=== PATIENT | female | born 1935 | race Caucasian/White ===

== ENCOUNTER 2021-08-27 15:46 | Inpatient (IN) | payer MEDICARE, BC ==
[~2021-08-27] VITALS: Ht 172.7 cm; Wt 59.9 kg
[~2021-08-27 15:46] MED LIST: ANTIDEPRESSANT; ASPI81CH PO; Atrovent Inha12.9 GM; CIPR500 PO; ESTR.05TPB TOP; GABA100 PO; MEDR2.5 PO; METO25 PO; Robaxin500 MG PO
[2021-08-27 16:34] LABS: BASOPHILS ABSOLUTE AUTO 0.04 K/mm3 (0.00-0.23); BASOPHILS PERCENT AUTO 0 % (0-2); EOSINOPHILS PERCENT AUTO 0 % (0-6); Hematocrit 43.6 % (33.0-51.0); Hemoglobin 14.2 g/dL (11.5-16.0); IMMATURE GRAN ABSOLUTE AUTO 0.09 K/mm3 (0.00-0.10); IMMATURE GRAN PERCENT AUTO 1 % (0-1); LYMPHOCYTES ABSOLUTE AUTO 0.63 K/mm3 (0.84-5.20); LYMPHOCYTES PERCENT AUTO 4 % (21-46); MONOCYTES ABSOLUTE AUTO 0.48 K/mm3 (0.16-1.47); MONOCYTES PERCENT AUTO 3 % (4-13); Mean Corpuscular HGB 32.1 pg (26.0-34.0); Mean Corpuscular HGB Conc 32.6 g/dL (31.5-36.5); Mean Corpuscular Volume 99 fL (80-100); Mean Platelet Volume 10.5 fL (9.1-12.4); NEUTROPHILS ABSOLUTE AUTO 16.96 K/mm3 (1.96-9.15); NEUTROPHILS PERCENT AUTO 93 % (41-73); Platelet Count 247 K/mm3 (150-400); RDW Coefficient Variation 12.5 % (11.7-14.2); RDW Standard Deviation 45.4 fL (35.1-46.3); Red Blood Cell Count 4.42 M/mm3 (3.80-5.20)
[2021-08-27] MEDS ORDERED: PROP10 PO (16:58)
[2021-08-27 17:01] LABS: Alanine Aminotransfer (ALT/SGP 48 U/L (12-78); Albumin, Blood 3.7 g/dL (3.4-5.0); Albumin/Globulin Ratio 1.1 (0.8-1.8); Alk Phos 82 U/L (50-136); Anion Gap 4 mmol/L (6-16); Aspartate Aminotrans (AST/SGOT 40 U/L (12-37); Bilirubin, Total 1.4 mg/dL (0.1-1.0); Blood Urea Nitrogen 26 mg/dL (8-24); Bun/Creatinine Ratio 37.8 (12.0-20.0); CO2, Blood 27 mmol/L (21-32); Calcium, Blood 9.1 mg/dL (8.5-10.1); Chloride, Blood 111 mmol/L (98-108); Creatinine, Blood 0.69 mg/dL (0.40-1.00); Globulin, Blood 3.5 g/dL (2.2-4.0); Glomerular Filtration Rate >60 (60-); Glucose, Blood 154 mg/dL (70-99); Sodium, Blood 142 mmol/L (136-145); Total Protein, Blood 7.2 g/dL (6.4-8.2)
[2021-08-27 17:40] LABS: Free Thyroxine 1.37 ng/dL (0.70-1.60); Magnesium, Blood 2.2 mg/dL (1.6-2.4)
[2021-08-27 17:42] LABS: Thyroid Stimulating Hormone 0.603 uIU/mL (0.360-4.800)
[2021-08-27 17:54] LABS: Source, Urine Clean Catch
[2021-08-27 18:07] LABS: Appearance, Urine Clear (Clear); Bilirubin, Urine Neg (Neg); Blood, Urine 3+ (Neg); Color, Urine Yellow (P-Yellow); Glucose Qualitative, Urine 2+ (Neg); Ketones, Urine 2+ (Neg); Leukocyte Esterase, Urine 3+ (Neg); Nitrite, Urine Neg (Neg); Protein, Urine 3+ (Neg); Urobilinogen, Urine NORM (Normal)
[2021-08-27 18:12] LABS: White Blood Cells, Urine 25-50 /hpf (0-5)
[2021-08-27 18:13] LABS: Bacteria Many /hpf; Squamous Epithelial Cells Few /hpf (Few); Transitional Epithelial Cells Few /hpf (0-Rare)
[2021-08-27] MEDS ORDERED: IPRATROPIUM BRO15 ML (20:00)
[2021-08-27] MEDS ORDERED: Methocarbamol500 MG PO (21:42)
[2021-08-27 22:02] LABS: SARS-Cov-2 (COVID-19) PCR, MMC NEGATIVE (NEGATIVE)
--- NOTE | 2021-08-28 00:41 | NUR ---
08/27/21 2253 PT ARRIVED TO ROOM FROM ER IN STABLE CONDITION. PT REPORTS A LITTLE NAUSEA. REPORTS N/T AND LEG CRAMPS THAT IS NOT NEW. PT'S HR IS BOUCING BACK AND FORTH BETWEEN THE 130'S AND THE 60'S TO 70'S. WILL LET THE DR KNOW. NO MEDS ARE ORDERED FOR THIS AT THIS TIME. NO OTHER APPARENT SIGNS OF DISTRESS. CALL LIGHT IS IN REACH.
--- NOTE | 2021-08-28 00:43 | NUR ---
CALLED DR CLEMENT PT'S HR, GOT ORDERS FOR PRN LOPRESSOR, WILL ADMINISTER ORDERED SOON IT IS AVAILABLE. PT IS CURRENTLY LYING IN BED, EYES CLOSED, APPEARS TO BE RESTING. BREATHING IS EVEN, AND UNLABORED. NO APPARENT SIGNS OF DISTRESS. CALL LIGHT IS IN REACH.
--- NOTE | 2021-08-28 01:33 | NUR ---
ADMINISTERED LOPRESSOR, PT'S HR IS NOW IN THE 120'S. PT LYING IN BED, HAD ALSO REPORTED NAUSEA, GAVE ZOFRAN, WILL EVAL FOR EFFECT. EYES CLOSED, APPEARS TO BE RESTING. BREATHING IS EVEN, UNLABORED. NO OTHER APPARENT SIGNS OF DISTRESS. CALL LIGHT IS IN REACH.
--- NOTE | 2021-08-28 04:04 | NUR ---
PT LYING IN BED, EYES CLOSED, APPEARS TO BE RESTING. WAKES EASILY TO VERBAL STIMULI. NO APPARENT SIGNS OF DISTRESS. CALL LIGHT IS IN REACH.
--- NOTE | 2021-08-28 04:05 | NUR ---
PT IS AAO X 4, ON 1L NC O2 AT 94%. PT'S O2 IS GOOD WHEN AWAKE, BUT DIPPS DOWN TO 88-89% WHEN SHE IS SLEEPING. REPORTED NAUSEA, GOT ZOFRAN. HR ON ARRIVAL TO FLOOR WAS 130'S BOUNCING BACK AND FORTH TO 60-70'S WITH 1ST DEGREE BLOCK AND PAC'S. GAVE LOPRESSER IV X 1, HR HAS BEEN 120'S BOUNCING BACK AND FORTH TO 60'S-70'S. PT HAS CHRONIC LEG CRAMPS. PRUITT WITH CLOUDY YELLOW URINE. CONT. PULSE OX.
[2021-08-28 04:55] LABS: BASOPHILS ABSOLUTE AUTO 0.02 K/mm3 (0.00-0.23); BASOPHILS PERCENT AUTO 0 % (0-2); EOSINOPHILS PERCENT AUTO 0 % (0-6); Hematocrit 38.1 % (33.0-51.0); Hemoglobin 12.4 g/dL (11.5-16.0); IMMATURE GRAN ABSOLUTE AUTO 0.04 K/mm3 (0.00-0.10); IMMATURE GRAN PERCENT AUTO 0 % (0-1); LYMPHOCYTES ABSOLUTE AUTO 0.86 K/mm3 (0.84-5.20); LYMPHOCYTES PERCENT AUTO 9 % (21-46); MONOCYTES ABSOLUTE AUTO 0.77 K/mm3 (0.16-1.47); MONOCYTES PERCENT AUTO 8 % (4-13); Mean Corpuscular HGB Conc 32.5 g/dL (31.5-36.5); Mean Corpuscular Volume 98 fL (80-100); Mean Platelet Volume 10.4 fL (9.1-12.4); NEUTROPHILS ABSOLUTE AUTO 8.39 K/mm3 (1.96-9.15); NEUTROPHILS PERCENT AUTO 83 % (41-73); Platelet Count 164 K/mm3 (150-400); RDW Coefficient Variation 12.8 % (11.7-14.2); RDW Standard Deviation 45.9 fL (35.1-46.3); Red Blood Cell Count 3.87 M/mm3 (3.80-5.20); White Blood Cell Count 10.08 K/mm3 (4.00-11.30)
[2021-08-28 05:32] LABS: Albumin, Blood 2.7 g/dL (3.4-5.0); Anion Gap 9 mmol/L (6-16); Blood Urea Nitrogen 18 mg/dL (8-24); Bun/Creatinine Ratio 27.5 (12.0-20.0); CO2, Blood 22 mmol/L (21-32); Chloride, Blood 113 mmol/L (98-108); Creatinine, Blood 0.66 mg/dL (0.40-1.00); Glomerular Filtration Rate >60 (60-); Glucose, Blood 81 mg/dL (70-99); Phosphorus, Blood 2.7 mg/dL (2.5-4.9); Potassium, Blood 3.5 mmol/L (3.5-5.5); Sodium, Blood 144 mmol/L (136-145)
--- NOTE | 2021-08-28 05:36 | NUR ---
PT LYING IN BED, EYES CLOSED, APPEARS TO BE RESTING. WAKES EASILY TO VERBAL STIMULI. NO APPARENT SIGNS OF DISTRESS. CALL LIGHT IS IN REACH. NO OTHER CHANGES THIS SHIFT.
--- NOTE | 2021-08-28 12:08 | NUR ---
Met with pt this morning, she is alert and oriented with instances of forgetfulness. She denies any pain or SOB today. She tells me she was brought here by ambulance after a night of nausea,vomiting and diarrhea. She had initially assumed it was related to food poisoning, but once she was admitted, she was diagnosed with a UTI and is currently being treated for it, along with SVT's up to 156 beats per minute. She does not currently have a code status in her chart, so she is automatically labeled with a Full Code.
--- NOTE | 2021-08-28 15:32 | NUR ---
Pt was interested in nutrition recommendations for managing IBS and helping her regain wt lost over the past few months. Discussed monitoring what foods are eaten before before onset of symtpoms. Discussed limiting intake of high fiber, high fat, acidic, or lactose-containing foods if they worsen symptoms. Discussed eating or drinking calorically dense foods/ONS to increase kcal consumption. Provided handout with easy to prepare high kcal/high protein recipes. Discussed eating several small meals throughout the day. Pt is eager to try suggestions.
--- NOTE | 2021-08-28 18:49 | NUR ---
SHIFT SUMMARY: LAST SVT EVENT AT 1420 TODAY, HR 144 FOR A COUPLE OF MINUTES THEN RETURNED TO 70'S. PLACED ON O2 @ 1 L/MIN NC O2 SATS REMAINED 85-88% WHILE SLEEPING AND EVEN WHEN AWAKE DEPENDING ON HER POSITION. PULSE OX PLACED ON R GREAT TOE SHE HAS GEL NAILS WHICH PREVENT ACCURATE SAT READING. C/O NECK AND BACK PAIN; MEDICATED WITH TYLENOL X 1 WITH ADEQUATE RELIEF. NO BM TODAY, GI PANEL PENDING. PRUITT DRAINING CLOUDY YELLOW URINE. WORKED WITH PT/OT TODAY. APPETITE IS QUITE POOR; PT'S SON STATED SHE HAS LOST ~ 40 LBS OVER THE PAST SEVERAL MONTHS. WET PROCESS ASSISTANT HEAD MILLER CONSULT ORDERED. PT AND OT EACH HAD CONVERSATION WITH PATIENT REGARDING HER LIVING ALONE AND RECOMMENDED GROUP HOME CLOSER TO HER SON, WHICH SHE IS CONSIDERING.
--- NOTE | 2021-08-28 23:36 | NUR ---
PT with variable heart rate from 77 to 149. Lopresser IV given for heart rate 132 tele monitor shows rapid rate cheanges. Assess effect of lopressor.
--- NOTE | 2021-08-28 23:49 | NUR ---
PT says long hx of IBS poor appetite but feels like she has food poisoning with other family menbers also having GI symptoms. Very ppor appetite. No stool for several days none since order for GI panel written 23 hrs ago. CANCELLED ORDER & contact isolation. IV LR infusing & PT resting quietly. After IV lopressor rate 71 currently per tele
--- NOTE | 2021-08-29 03:32 | NUR ---
PT elderly lives alone has reported IBS & cardiac arrythmia on cardiac meds on admit, having SVT & had adenosine twice in ER per record. Multiple calls from Tele monitor with rapid change in HR from 70s to 140s & 1x IV lopressor not effective to stop. Did seem to slow for less than [address] TSAI updated & he ordered CMP as well as CBC which PT already had ordered. Another IV lporesser once ordered will administer & continue with tele monitoring, early CMP. PT feels heart fluttering in chest with SVT. 1 l NC oxygen to keep sats greater than 90%. PT continues on IVF at 75 ml HR, & has very poor oral intake. Electrical Integrator has seen PT. Recent 40 pound WT loss.
--- NOTE | 2021-08-29 04:50 | NUR ---
PT continues tachycardic after IV lopresser 5 mg tachy at rest 141 but she bounces down to 70s. PT see's cardiology DR Childers last about 1 year ago. Feels palpatations when heart rate elevated. Not up out of bed this shift.
[2021-08-29 04:56] LABS: Hematocrit 35.8 % (33.0-51.0); Hemoglobin 11.3 g/dL (11.5-16.0); Mean Corpuscular HGB 31.3 pg (26.0-34.0); Mean Corpuscular HGB Conc 31.6 g/dL (31.5-36.5); Mean Corpuscular Volume 99 fL (80-100); Mean Platelet Volume 10.5 fL (9.1-12.4); Platelet Count 185 K/mm3 (150-400); RDW Coefficient Variation 12.6 % (11.7-14.2); RDW Standard Deviation 46.5 fL (35.1-46.3); Red Blood Cell Count 3.61 M/mm3 (3.80-5.20); White Blood Cell Count 9.27 K/mm3 (4.00-11.30)
--- NOTE | 2021-08-29 05:14 | NUR ---
PT continues with heart rate 147 despite IV lopresser 2nd dose. She has chest pressure rt upper chest 02/24.Paged MD Vicente & discussed with special agent in charge Maryam. PT continues to feel palpations. he calls back to give 10 mg IV cardizem & get stat EKG. Maryam RN going to get EKG.
[2021-08-29 05:19] LABS: Alanine Aminotransfer (ALT/SGP 28 U/L (12-78); Albumin, Blood 2.5 g/dL (3.4-5.0); Albumin/Globulin Ratio 0.9 (0.8-1.8); Alk Phos 52 U/L (50-136); Anion Gap 5 mmol/L (6-16); Aspartate Aminotrans (AST/SGOT 21 U/L (12-37); Bilirubin, Total 0.8 mg/dL (0.1-1.0); Blood Urea Nitrogen 11 mg/dL (8-24); CO2, Blood 28 mmol/L (21-32); Calcium, Blood 8.3 mg/dL (8.5-10.1); Chloride, Blood 109 mmol/L (98-108); Creatinine, Blood 0.74 mg/dL (0.40-1.00); Globulin, Blood 2.7 g/dL (2.2-4.0); Glomerular Filtration Rate >60 (60-); Glucose, Blood 91 mg/dL (70-99); Potassium, Blood 3.4 mmol/L (3.5-5.5); Sodium, Blood 142 mmol/L (136-145); Total Protein, Blood 5.2 g/dL (6.4-8.2)
--- NOTE | 2021-08-29 06:42 | NUR ---
PT had IV lopressor 5 mg x2 for heart rate up to high 140s minimal effect. Chest pain 02/24 rt upper chest resolve with cardizen IV 10 mg x 1. Heart rate 70s after cardizem. Stat EKG when PT has NSR & then AFIB RVR. Minimal oral intake sips fluids.Passing flatus, abd distended soft. no bowel movement.
--- NOTE | 2021-08-29 18:23 | NUR ---
SHIFT SUMMARY: CARDIAC RHYTHM CONTINUED TO FLIP BACK AND FORTH BETWEEN SR 70-80'S AND AFIB RVR/A FLUTTER 130-160'S THROUGHOUT THE DAY, MOSTLY WITH ACTIVITY. DENIED CP, ENDORSES DIZZINESS AND SOB WITH EXERTION. USING O2 @ 1-2 L/MIN NC TO MAINTAIN O2 SAT > 92%; DESATS TO 85-89% ON RA. NOTED COUGHING WITH THIN LIQUIDS DURING BEDSIDE SWALLOW EVAL. APPETITE REMAINS VERY POOR; TILE SHADER ORDERED MEAL SUPPLEMENTATION WITH ENSURE, BUT PT UNABLE TO TOLERATE, MAKES HER NAUSEATED. MEDICATED FOR NAUSEA BUT THIS DID NOT IMPROVE HER APPETITE. PRUITT DRAINING ADEQUATE COLORLESS URINE. GENERALIZED WEAKNESS INCREASING EVEN THOUGH SHE IS GETTING OOB FOR MEALS; SHE CANNOT TOLERATE BEING OOB FOR LONGER THAN 20 MINUTES. SON JESICA VISITED THIS EVENING; WOULD LIKE TO SPEAK TO CM TOMORROW.
--- NOTE | 2021-08-30 05:54 | NUR ---
SHIFT SUMMARY PT A&OX4, O2 1-2L VIA NC. PT HAS TROUBLE SWALLOWING. TAKES MEDS WHOLE IN APPLE SAUCE. ADLS PROVIDED, SAFETY MEASURES IN PLACE. WILL CONTINUE TO MONITOR.
--- NOTE | 2021-08-30 10:47 | NUR ---
Telephone call with pt's son Fracnisco this morning. He realizes his mom is no longer safe to be on her own. They are looking at selling pt's home and moving her to the [place] area where her granddaughter lives. For the short term, they are discussing hiring a millinery department manager caregiver and try to involve home health for extra support. Francisco also expresses concern about pt's IBS. He also reports pt takes up to 3 immodium on a daily basis to keep from having chronic diarrhea, and she also doesn't eat often, stating her "stomach hurts too bad". And she doesn't like to drink fluids, as she is fatigued on a regular basis. Her son Francisco also reports pt is having a harder time balancing her checkbook and other tasks she used to be able to perform, along with decreased ability with decision making. I will pass the message on to Care Management to call pt's son Francisco to discuss the options available for them.
--- NOTE | 2021-08-30 12:00 | NUR ---
Met with pt to review POLST. She chose DNR with limited interventions. She is planning to discharge home today. Dr. Chapin will sign the POLST prior to her going home.
[2021-08-30] MEDS ORDERED: DOXY100 PO (12:08)
[2021-08-30] MEDS ORDERED: METO25ER PO (12:08)
[2021-08-30] MEDS ORDERED: XARELTO20 MG PO (12:09)
--- NOTE | 2021-08-30 17:01 | NUR ---
DISCHARGE DISCHARGE MEDICATIONS AND INSTRUCTIONS EXPLAINED TO PATIENT AND PATIENT'S SON. THEY STATED UNDERSTANDING. HOME 02 EVAL COMPLETED, [facility] DELIVERED PORTABLE OXYGEN. IV REMOVED WITHOUT ISSUE. BELONGINGS WITH PATIENT. PATIENT TRANSFEREED TO PRIVATE VEHICLE VIA WHEELCHAIR.
== END 2021-08-30 16:56 | disposition home health service (06) | DRG 872 ==
LOC: ER 15:46 → MEDS 15:47 → ER 20:14 → MEDS 22:37
PROVIDERS: Emergency Medicine; Family Medicine; Internal Medicine; Physician Assistant; ADMIT Internal Medicine
DX: A41.9 Sepsis, unspecified organism (principal); I47.1 Supraventricular tachycardia; N39.0 Urinary tract infection, site not specified; Z23 Encounter for immunization; E87.6 Hypokalemia; R65.20 Severe sepsis without septic shock; Z20.822 Contact with and (suspected) exposure to COVID-19; J44.9 Chronic obstructive pulmonary disease, unspecified; I48.91 Unspecified atrial fibrillation; Z98.891 History of uterine scar from previous surgery; Z87.891 Personal history of nicotine dependence; Z88.1 Allergy status to other antibiotic agents; Z91.018 Allergy to other foods; Z79.51 Long term (current) use of inhaled steroids; Z79.899 Other long term (current) drug therapy
CPT/HCPCS: 36415; 51702; 71045; 80053; 80069; 81001; 83735; 84145; 84439; 84443; 84484; 85025; 85027; 87040; 87086; 90686; 92610; 93005; 93010; 94761; 94762; 96365; 96372; 96375; 96376; 97110; 97116; 97162; 97165; 97530; 97530-CO; 97535; 97535-CO; 99285-25; A9270; G0008; G0378; J0153; J0744; J0780; J1650; J1956; J2405; J3480; J7030; J7050; J7120; U0004

== ENCOUNTER 2021-09-06 16:05 | Emergency (ER) | payer MEDICARE, BC ==
[~2021-09-06] VITALS: Ht 172.7 cm; Wt 55.8 kg
[~2021-09-06 16:05] MED LIST changes: +DOXY100 PO; +IPRATROPIUM BRO15 ML; +METO25ER PO; +Methocarbamol500 MG PO; +PROP10 PO; +XARELTO20 MG PO
[2021-09-06 17:08] LABS: BASOPHILS ABSOLUTE AUTO 0.06 K/mm3 (0.00-0.23); BASOPHILS PERCENT AUTO 1 % (0-2); EOSINOPHILS PERCENT AUTO 2 % (0-6); Hematocrit 35.3 % (33.0-51.0); Hemoglobin 11.4 g/dL (11.5-16.0); IMMATURE GRAN ABSOLUTE AUTO 0.08 K/mm3 (0.00-0.10); IMMATURE GRAN PERCENT AUTO 1 % (0-1); LYMPHOCYTES ABSOLUTE AUTO 1.76 K/mm3 (0.84-5.20); LYMPHOCYTES PERCENT AUTO 14 % (21-46); MONOCYTES ABSOLUTE AUTO 1.01 K/mm3 (0.16-1.47); MONOCYTES PERCENT AUTO 8 % (4-13); Mean Corpuscular HGB 31.1 pg (26.0-34.0); Mean Corpuscular HGB Conc 32.3 g/dL (31.5-36.5); Mean Corpuscular Volume 96 fL (80-100); Mean Platelet Volume 10.1 fL (9.1-12.4); NEUTROPHILS ABSOLUTE AUTO 9.49 K/mm3 (1.96-9.15); NEUTROPHILS PERCENT AUTO 75 % (41-73); Platelet Count 420 K/mm3 (150-400); RDW Coefficient Variation 12.3 % (11.7-14.2); RDW Standard Deviation 43.6 fL (35.1-46.3); Red Blood Cell Count 3.67 M/mm3 (3.80-5.20)
[2021-09-06 17:21] LABS: Source, Urine Catheter
[2021-09-06 17:27] LABS: Alanine Aminotransfer (ALT/SGP 17 U/L (12-78); Albumin, Blood 2.4 g/dL (3.4-5.0); Albumin/Globulin Ratio 0.6 (0.8-1.8); Alk Phos 60 U/L (50-136); Anion Gap 5 mmol/L (6-16); Aspartate Aminotrans (AST/SGOT 16 U/L (12-37); Bilirubin, Total 0.8 mg/dL (0.1-1.0); Blood Urea Nitrogen 16 mg/dL (8-24); Bun/Creatinine Ratio 23.1 (12.0-20.0); CO2, Blood 28 mmol/L (21-32); Calcium, Blood 9.2 mg/dL (8.5-10.1); Chloride, Blood 105 mmol/L (98-108); Creatinine, Blood 0.69 mg/dL (0.40-1.00); Globulin, Blood 4.3 g/dL (2.2-4.0); Glomerular Filtration Rate >60 (60-); Glucose, Blood 97 mg/dL (70-99); Sodium, Blood 138 mmol/L (136-145); Total Protein, Blood 6.7 g/dL (6.4-8.2)
[2021-09-06 17:38] LABS: Appearance, Urine Clear (Clear); Bilirubin, Urine Neg (Neg); Blood, Urine Neg (Neg); Color, Urine Yellow (P-Yellow); Glucose Qualitative, Urine Neg (Neg); Ketones, Urine Neg (Neg); Leukocyte Esterase, Urine 1+ (Neg); Nitrite, Urine Neg (Neg); Protein, Urine 1+ (Neg); Urobilinogen, Urine NORM (Normal)
[2021-09-06 17:51] LABS: Bacteria Few /hpf; Red Blood Cells, Urine 0-2 /hpf (0-2); Squamous Epithelial Cells Few /hpf (Few); Transitional Epithelial Cells Few /hpf (0-Rare)
[2021-09-06] MEDS ORDERED: LEVFLO500 PO (21:25)
== END 2021-09-06 21:46 | disposition home or self-care (01) ==
LOC: ER 16:05
PROVIDERS: Physician Assistant
DX: D72.829 Elevated white blood cell count, unspecified (principal); R82.81 Pyuria; Z79.899 Other long term (current) drug therapy; Z91.018 Allergy to other foods
CPT/HCPCS: 36415; 71046; 80053; 81001; 83605; 85025; 87086; 93005; 93010; 99284-25; A9270

== ENCOUNTER 2022-04-02 12:43 | Observation (INO) | payer MEDICARE, BC ==
[~2022-04-02] VITALS: Ht 172.7 cm; Wt 53.3 kg
[~2022-04-02 12:43] MED LIST changes: +LEVFLO500 PO
[2022-04-02 14:23] LABS: BASOPHILS ABSOLUTE AUTO 0.06 K/mm3 (0.00-0.23); BASOPHILS PERCENT AUTO 1 % (0-2); EOSINOPHILS ABSOLUTE AUTO 0.09 K/mm3 (0.00-0.68); EOSINOPHILS PERCENT AUTO 1 % (0-6); Hematocrit 32.6 % (33.0-51.0); Hemoglobin 10.3 g/dL (11.5-16.0); IMMATURE GRAN ABSOLUTE AUTO 0.03 K/mm3 (0.00-0.10); IMMATURE GRAN PERCENT AUTO 0 % (0-1); LYMPHOCYTES ABSOLUTE AUTO 2.07 K/mm3 (0.84-5.20); LYMPHOCYTES PERCENT AUTO 26 % (21-46); MONOCYTES ABSOLUTE AUTO 0.74 K/mm3 (0.16-1.47); MONOCYTES PERCENT AUTO 10 % (4-13); Mean Corpuscular HGB 31.9 pg (26.0-34.0); Mean Corpuscular HGB Conc 31.6 g/dL (31.5-36.5); Mean Corpuscular Volume 101 fL (80-100); NEUTROPHILS ABSOLUTE AUTO 4.84 K/mm3 (1.96-9.15); NEUTROPHILS PERCENT AUTO 62 % (41-73); Platelet Count 235 K/mm3 (150-400); RDW Standard Deviation 47.9 fL (35.1-46.3); Red Blood Cell Count 3.23 M/mm3 (3.80-5.20); White Blood Cell Count 7.83 K/mm3 (4.00-11.30)
[2022-04-02 14:42] LABS: Albumin, Blood 3.6 g/dL (3.4-5.0); Albumin/Globulin Ratio 1.3 (0.8-1.8); Bun/Creatinine Ratio 36.1 (12.0-20.0); Calcium, Blood 9.1 mg/dL (8.5-10.1); Creatinine, Blood 0.78 mg/dL (0.40-1.00); Globulin, Blood 2.8 g/dL (2.2-4.0); Potassium, Blood 4.2 mmol/L (3.5-5.5); Total Protein, Blood 6.4 g/dL (6.4-8.2)
[2022-04-02 15:37] LABS: International Normalized Ratio 1.18; Prothrombin Time Results 12.3 Sec (9.7-11.5)
[2022-04-02] MEDS ORDERED: PROP10 PO (17:58)
[2022-04-02 20:22] LABS: Influenza A, PCR NEGATIVE (NEGATIVE); Influenza B, PCR NEGATIVE (NEGATIVE); Resp Syncytial Virus, PCR NEGATIVE (NEGATIVE); SARS-Cov-2 (COVID-19) PCR, MMC NEGATIVE (NEGATIVE)
--- NOTE | 2022-04-02 20:52 | NUR ---
ADMIT NOTE 86 YR OLD FEMALE ADMITED TO FLOOR FROM THE ED WITH DX OF GI BLEED. ED RN REPORTED PT REPORTED "BLACK STOOLS SINCE FRIDAY" (4 DAYS). ALERT AND ORINTED. ORIENTED OT USE OF CALL LIGHT. RILS UP X 2. CALL LIGHT IN REACH
[2022-04-02 21:09] LABS: Hematocrit 30.6 % (33.0-51.0); Hemoglobin 9.8 g/dL (11.5-16.0)
--- NOTE | 2022-04-02 21:58 | NUR ---
DR JIMENEZ IN ROOM TO ASSESS PT, ORDERS OBTAINED FOR NPO EXCEPT WATER AND ICE CHIPS UNTIL NOON TOMORROW AND THEN NPO FOR PROCEDURE
--- NOTE | 2022-04-02 22:01 | NUR ---
WHILE ASSESSING PT, DISCUSSED GI BLEED AND POSSIBLE NEED FOR BLOOD. PT VOICED SHE WOULD ACCEPT BLOOD LONG IT DIDNT HAVE COVID IN IT. CALL LIGHT IN REACH.
--- NOTE | 2022-04-02 22:58 | NUR ---
INITIATED A PROTONIX DRIP PER MD ORDERS - INFUSING AT 10 ML/HR. AFFECT CHEERFUL. CALL LIGHT IN REACH
--- NOTE | 2022-04-02 23:12 | NUR ---
GAS LEAK INSPECTOR HELPER SUMMARY ADMITTED EARLIER IN THE SHIFT WITH DX OF GI BLEED. REPORTEDLY HAVING HAD BLACK STOOLS FOR 4 DAYS. LABS REVEAL HGB TRENDING DOWN, LATEST 9.8 FROM 10.3 EARLIER. PLACED ON PROTONIX DRIP AT 10 ML/HR. LABS SCHEDULED EVERY 6 HRS X 4 TO MONITOR HGB LEVEL. ALERT AND ORIENTED. UP WITH ASSIST DUE TO APPARENT WEAKNESS. NO APPARENT S/S ACUTE DISTRESS OF THIS WRITING. NPO EXCEPT WATER AND ICE CHIPS UNTIL 12 NOON TOMORROW, THEN NPO COMPLETELY FOR PROCEDURE.
[2022-04-03 06:57] LABS: Albumin, Blood 3.3 g/dL (3.4-5.0); Albumin/Globulin Ratio 1.4 (0.8-1.8); Bilirubin, Total 1.2 mg/dL (0.1-1.0); Bun/Creatinine Ratio 31.3 (12.0-20.0); Calcium, Blood 8.3 mg/dL (8.5-10.1); Creatinine, Blood 0.67 mg/dL (0.40-1.00); Globulin, Blood 2.4 g/dL (2.2-4.0); Potassium, Blood 3.7 mmol/L (3.5-5.5); Total Protein, Blood 5.7 g/dL (6.4-8.2)
[2022-04-03 08:40] LABS: Hematocrit 29.5 % (33.0-51.0); Hemoglobin 9.4 g/dL (11.5-16.0)
[2022-04-03 10:41] LABS: BASOPHILS ABSOLUTE AUTO 0.03 K/mm3 (0.00-0.23); BASOPHILS PERCENT AUTO 1 % (0-2); EOSINOPHILS ABSOLUTE AUTO 0.11 K/mm3 (0.00-0.68); EOSINOPHILS PERCENT AUTO 2 % (0-6); Hemoglobin 9.2 g/dL (11.5-16.0); IMMATURE GRAN ABSOLUTE AUTO 0.01 K/mm3 (0.00-0.10); IMMATURE GRAN PERCENT AUTO 0 % (0-1); LYMPHOCYTES PERCENT AUTO 29 % (21-46); MONOCYTES ABSOLUTE AUTO 0.51 K/mm3 (0.16-1.47); MONOCYTES PERCENT AUTO 11 % (4-13); Mean Corpuscular HGB 31.4 pg (26.0-34.0); Mean Corpuscular HGB Conc 31.7 g/dL (31.5-36.5); Mean Corpuscular Volume 99 fL (80-100); Mean Platelet Volume 10.3 fL (9.1-12.4); NEUTROPHILS ABSOLUTE AUTO 2.72 K/mm3 (1.96-9.15); NEUTROPHILS PERCENT AUTO 57 % (41-73); Platelet Count 196 K/mm3 (150-400); RDW Coefficient Variation 13.1 % (11.7-14.2); RDW Standard Deviation 46.5 fL (35.1-46.3); Red Blood Cell Count 2.93 M/mm3 (3.80-5.20); White Blood Cell Count 4.78 K/mm3 (4.00-11.30)
[2022-04-03 14:40] LABS: Hematocrit 30.7 % (33.0-51.0); Hemoglobin 9.7 g/dL (11.5-16.0)
--- NOTE | 2022-04-03 16:06 | NUR ---
History, Chart, Medications and Allergies reviewed before start of procedure. Patient confirms NPO status and agrees with scheduled surgery.
--- NOTE | 2022-04-03 16:29 | NUR ---
04/03/22 1629 Corbin Camacho History, Chart, Medications and Allergies reviewed before start of procedure. Patient confirms NPO status and agrees with scheduled surgery. 3-LEAD EKG REVIEWED WITH PHYSICIAN PRIOR TO START OF PROCEDURE. MONITOR INTACT WITH CONTINUOUS PULSE OXIMETRY AND INTERMITTENT BP. PATIENT DETERMINED TO BE ASA APPROPRIATE FOR PROPOFOL SEDATION PRIOR TO START OF PROCEDURE BY DR. FLORES
--- NOTE | 2022-04-03 18:30 | NUR ---
SHIFT SUMMARY PATIENT A&O, VERY PLEASANT. PATIENT DOWN FOR EGD TODAY, 4 CLIPS APPLIED. PATIENT RETURNED TO UNIT, VS STABLE. PANTOPRAZOLE CONTINUED INFUSING. AWAITIN DIET ORDERS FROM MD. NO ACUTE EVENTS DURING SHIFT. TABLE AT BEDSIDE, CALL LIGHT WITHIN REACH. WILL CONTINUE TO MONITOR
--- NOTE | 2022-04-04 04:39 | NUR ---
SHIFT SUMMARY PATIENT HAD DECREASED STRENGTH T/O SHIFT. REPORTING FELT WEAK GOING TO BR WITH FWW AND ONE ASSIST. NOW STAND PIVOT TO BSC. NPO AWAITING DIET ORDER. PIV REMAINS INTACT. IV CONTINUOUS PROTONIX DRIP INFUSING AT 10 mL/HR. DENIES PAIN, SOB, AND N/V. AFEBRILE. CALL LIGHT IN REACH. BED IN LOWEST POSITION. WILL CONTINUE TO MONITOR UNTIL DAY SHIFT NURSE ASSUMES CARE.
[2022-04-04 08:08] LABS: Hematocrit 29.8 % (33.0-51.0); Hemoglobin 9.6 g/dL (11.5-16.0)
[2022-04-04 10:01] LABS: Hematocrit 31.6 % (33.0-51.0); Hemoglobin 10.3 g/dL (11.5-16.0)
[2022-04-04] MEDS ORDERED: OMEP20ER PO (11:44)
--- NOTE | 2022-04-04 17:38 | NUR ---
DISCHARGE SUMMARY PATIENT DISCHARGED HOME. DISCHARGE PAPERWORK REVIEWED WITH PATIENT AND PATIENTS FRIEND WHO WILL BE HELPING TAKE CARE OF HER NEXT COUPLE DAYS. ALL QUESTIONS ANSWERED. IV D/C'D. PATIENT AND ALL BELONGINGS TAKEN VIA WHEELCHAIR TO PERSONAL VEHICLE.
== END 2022-04-04 14:17 | disposition home or self-care (01) ==
LOC: ER 12:43 → MEDS 12:44
PROVIDERS: Internal Medicine Gastroenterology; Physician Assistant; Student in an Organized Health Care Education/Training Program; ADMIT Internal Medicine
PROC: 0DQ68ZZ Repair Stomach, Via Natural or Artificial Opening Endoscopic (ICD-10-PCS; principal; 2022-04-03 16:00)
DX: K25.4 Chronic or unspecified gastric ulcer with hemorrhage (principal); K44.9 Diaphragmatic hernia without obstruction or gangrene; K21.9 Gastro-esophageal reflux disease without esophagitis; I48.91 Unspecified atrial fibrillation; Z88.1 Allergy status to other antibiotic agents; Z91.018 Allergy to other foods; Z87.891 Personal history of nicotine dependence; Z79.01 Long term (current) use of anticoagulants; Z20.822 Contact with and (suspected) exposure to COVID-19
CPT/HCPCS: 0241U; 36415; 80053; 85014; 85018; 85025; 85610; 86850; 86900; 86901; 93005; 93010; 96374; 96376; 97161; 97166; 97535; 99285-25; A9270; C9113; G0378; J0171; J2704; J7120

== ENCOUNTER → 2023-03-16 | Outpatient (CLI) | payer MEDICARE, BC ==
[~2023-03-16] MED LIST changes: +OMEP20ER PO
== END ==
LOC: LAB 16:20 → LAB SHORT 16:20
DX: R30.0 Dysuria (principal)
CPT/HCPCS: 87086

== ENCOUNTER 2023-11-16 12:51 | Emergency (ER) | payer MEDICARE, BC ==
[~2023-11-16] VITALS: Ht 167.6 cm; Wt 48.1 kg
[2023-11-16 13:07] LABS: BASOPHILS ABSOLUTE AUTO 0.05 K/mm3 (0.00-0.23); BASOPHILS PERCENT AUTO 1 % (0-2); EOSINOPHILS ABSOLUTE AUTO 0.06 K/mm3 (0.00-0.68); EOSINOPHILS PERCENT AUTO 1 % (0-6); Hematocrit 39.7 % (33.0-51.0); Hemoglobin 12.7 g/dL (11.5-16.0); IMMATURE GRAN ABSOLUTE AUTO 0.01 K/mm3 (0.00-0.10); IMMATURE GRAN PERCENT AUTO 0 % (0-1); LYMPHOCYTES ABSOLUTE AUTO 1.69 K/mm3 (0.84-5.20); LYMPHOCYTES PERCENT AUTO 28 % (21-46); MONOCYTES ABSOLUTE AUTO 0.64 K/mm3 (0.16-1.47); MONOCYTES PERCENT AUTO 11 % (4-13); Mean Corpuscular HGB 30.4 pg (26.0-34.0); Mean Corpuscular Volume 95 fL (80-100); Mean Platelet Volume 9.8 fL (9.1-12.4); NEUTROPHILS ABSOLUTE AUTO 3.66 K/mm3 (1.96-9.15); NEUTROPHILS PERCENT AUTO 60 % (41-73); Platelet Count 211 K/mm3 (150-400); RDW Coefficient Variation 14.1 % (11.7-14.2); RDW Standard Deviation 49.3 fL (35.1-46.3); Red Blood Cell Count 4.18 M/mm3 (3.80-5.20); White Blood Cell Count 6.11 K/mm3 (4.00-11.30)
[2023-11-16 13:24] LABS: Albumin, Blood 3.2 g/dL (3.4-5.0); Bilirubin, Total 1.3 mg/dL (0.1-1.0); Bun/Creatinine Ratio 16.4 (12.0-20.0); Calcium, Blood 8.6 mg/dL (8.5-10.1); Creatinine, Blood 0.73 mg/dL (0.40-1.00); Globulin, Blood 3.1 g/dL (2.2-4.0); Potassium, Blood 3.7 mmol/L (3.5-5.5); Total Protein, Blood 6.3 g/dL (6.4-8.2)
[2023-11-16 15:03] VITALS: BP 147/94
[2023-11-16 15:06] LABS: Source, Urine Voided
[2023-11-16 15:19] LABS: Appearance, Urine Clear (Clear); Bilirubin, Urine Neg (Neg); Blood, Urine Neg (Neg); Glucose Qualitative, Urine Neg (Neg); Ketones, Urine Neg (Neg); Leukocyte Esterase, Urine Neg (Neg); Nitrite, Urine Neg (Neg); Protein, Urine Neg (Neg); Urobilinogen, Urine NORM (Normal)
[2023-11-16 15:28] LABS: Color, Urine Pale Yellow (P-Yellow)
[2023-11-16] MEDS ORDERED: ONDA4ODT MM (16:16)
== END 2023-11-16 16:40 | disposition home or self-care (01) ==
LOC: ER 12:51
PROVIDERS: Emergency Medicine
DX: R11.2 Nausea with vomiting, unspecified (principal); R19.7 Diarrhea, unspecified; Z88.1 Allergy status to other antibiotic agents; Z91.018 Allergy to other foods; Z87.891 Personal history of nicotine dependence
CPT/HCPCS: 71045; 80053; 81003; 83880; 85025; 93005; 93010; 99285-25